=== PATIENT | female | born 1975 | race Caucasian/White ===

== ENCOUNTER 2017-08-30 12:50 | Outpatient (CLI) | payer OTHER ==
[2017-08-30 13:31] LABS: #Basophils 0.1 thou/uL (0.0-0.2); #Eosinphils 0.1 thou/uL (0.0-0.7); #Lymphocytes 2.8 thou/uL (1.20-3.40); #Monocytes 0.5 thou/uL (0.11-0.59); #Neutrophils 5.4 thou/uL (1.40-6.50); %Basophils 0.9 % (0.0-1.0); %Eosinophils 1.1 % (0.0-10.0); %Lymphocytes 31.4 % (21.0-51.0); Hematocrit 42.7 % (36.0-47.0); Mean Platelet Volume 8.7 fL (7.4-10.4); Red Blood Cell (RBC) Count 4.74 mill/uL (4.20-5.40)
[2017-08-30 14:01] LABS: ALT (SGPT) 7 U/L (8-55); AST (SGOT) 14 U/L (5-34); Alkaline Phosphatase 103 U/L (40-150); Anion Gap 9 mmol/L (10-20); BUN (Urea Nitrogen) 7 mg/dL (7.0-18.7); Bilirubin, Total 0.7 mg/dL (0.2-1.2); Calc. Creatinine Clearance 0 mL/min (70-130); Calcium 9.6 mg/dL (7.8-10.44); Carbon Dioxide 29 mmol/L (22-29); Chloride 104 mmol/L (98-107); Estimated GFR-MDRD Greater than 90; Globulin 3.2 g/dL (2.4-3.5); Protein, Total 7.4 g/dL (6.0-8.3)
== END 2017-08-30 12:51 | disposition home or self-care (01) ==
LOC: LABBT 12:50
PROVIDERS: ATTEND Specialist
DX: Z01.812 Encounter for preprocedural laboratory examination (principal); K80.20 Calculus of gallbladder without cholecystitis without obstruction
CPT/HCPCS: 80053; 85025

== ENCOUNTER 2017-09-01 10:40 | Day surgery (SDC) | payer OTHER ==
[2017-08-30 12:57] VITALS: BMI 38.9
[2017-09-01] MEDS ORDERED: Ketorolac Tromethamine 30 MG/ML VIAL ONE (11:54)
[2017-09-01] MEDS ORDERED: CEFAZOLIN/Water 2 GM/20 ML SYRINGE ONE (11:54)
[2017-09-01] MEDS ORDERED: Bupivacaine/Epinephrine 0.25% 30 ML VIAL ONE (12:32)
[2017-09-01] MEDS ORDERED: Fentanyl 100 MCG/2 ML VIAL ONE ×2 (13:15→14:52)
[2017-09-01] MEDS ORDERED: Promethazine HCl 25 MG/ML VIAL ONE (14:38)
[2017-09-01] MEDS ORDERED: Dexamethasone 20 MG/5 ML VIAL ONE (15:01)
[2017-09-01] MEDS ORDERED: Glycopyrrolate 0.2 MG/ML 5 ML SYRINGE ONE (15:01)
[2017-09-01] MEDS ORDERED: Propofol 200 MG/20 ML VIAL ONE (15:01)
[2017-09-01] MEDS ORDERED: Ondansetron HCl/PF 4 MG/2 ML Vial ONE (15:01)
[2017-09-01] MEDS ORDERED: Lidocaine 1% PF 5 ML VIAL ONE (15:01)
[2017-09-01] MEDS ORDERED: HYDROcodone/Acetaminophen 5/325 mg Tablet ONE (16:15)
--- NOTE | 2017-09-02 16:27 | OP ---
DATE OF PROCEDURE: 09/01/2017 PREOPERATIVE DIAGNOSIS: Symptomatic cholelithiasis. POSTOPERATIVE DIAGNOSIS: Symptomatic cholelithiasis. PROCEDURE PERFORMED: Laparoscopic cholecystectomy. SURGEON: Siddhartha Bo M.D. ANESTHESIA: General endotracheal. INDICATIONS: The patient is a 42-year-old morbidly obese female. She is currently undergoing evalua tion for bariatric surgery. She complained of right upper quadrant abdominal pain and gallbladder ul trasound was performed by myself revealing evidence of cholelithiasis. Her preoperative liver functi on tests were entirely normal. She is taken to the operating room at this time for laparoscopic chol ecystectomy. PROCEDURE IN DETAIL: Informed consent was obtained. The patient was taken to the operating room whe re general endotracheal anesthesia was obtained with the patient in the supine position. The abdomen was prepped with Betadine and draped in the usual sterile fashion. Quarter percent Marcaine with ep inephrine was infiltrated below the umbilicus and a 10 mm infraumbilical incision was created. A Lenin ess needle was passed through this incision into the peritoneal cavity. A pneumoperitoneum was estab lished using carbon dioxide up to a pressure of 15 mmHg. Local anesthetic was infiltrated and three additional 5 mm right upper quadrant incisions were created. Through the mid incision, a 5 mm port w as passed into the peritoneal cavity. The camera was passed through this port and under direct visio n, an 11 port is passed through the infraumbilical incision. The camera was replaced through this port, and under dir ect vision, two additional 5 mm ports were passed through the incisions already created. The gallbladder was grasped and retracted in a cephalad direction. Minimal adhesions were bluntly st ripped away from the apex of the gallbladder, and the apex was retracted laterally and inferiorly. C areful dissection was carried out to the apex of the gallbladder to identify the cystic duct and cyst ic artery. These were each carefully dissected circumferentially. The duct was of normal caliber. Both the duct and the artery were divided between clips leaving two on the side to remain within the abdomen. The gallbladder was then dissected out of the gallbladder fossa using electrocautery and re moved through the infraumbilical port site. The fascia was closed with 0 Vicryl suture and a GraNee needle. The right upper quadrant was inspected and irrigated. All irrigant was aspirated. All port s and instruments were removed under direct vision. Pneumoperitoneum was carefully evacuated. Addit ional local anesthetic was infiltrated into each port site. The skin edges were approximated with 4- 0 Monocryl subcuticular sutures, and Dermabond was placed externally. There were no complications. The patient tolerated the procedure well and was taken to the Recovery Room in stable condition. FINDINGS: The patient's gallbladder was without acute inflammation. There were substantial adhesion s to the gallbladder. The operation was performed uneventfully and with essentially no blood loss. There were several large gallstones present within the gallbladder that had to be removed percutaneou sly to allow gallbladder extraction. The duct was small and noninflamed and a cholangiogram was not obtained. There were no complications. The patient tolerated the procedure well and was taken to re covery room in stable condition.
== END 2017-09-01 16:38 | disposition home or self-care (01) ==
LOC: SDC 10:40
PROVIDERS: ATTEND Specialist
PROC: 0FT44ZZ Resection of Gallbladder, Percutaneous Endoscopic Approach (ICD-10-PCS; principal; 2017-09-01)
DX: K80.10 Calculus of gallbladder with chronic cholecystitis without obstruction (principal); E78.5 Hyperlipidemia, unspecified; F41.9 Anxiety disorder, unspecified; K21.9 Gastro-esophageal reflux disease without esophagitis; Z88.8 Allergy status to other drugs, medicaments and biological substances; Z90.710 Acquired absence of both cervix and uterus; Z98.818 Other dental procedure status; Z98.890 Other specified postprocedural states
CPT/HCPCS: 88304; 96374; J0131; J1100; J1885; J2001; J2405; J2550; J2704; J3010

== ENCOUNTER 2018-02-09 10:24 | Outpatient (CLI) | payer OTHER ==
--- NOTE | 2018-02-09 13:08 | RAD ---
DOUBLE CONTRAST UPPER GI: Date: 02/09/18 CLINICAL HISTORY: Reflux esophagitis, preoperative clearance. No prior imaging for comparison. FINDINGS: [employer] imaging reveals cholecystectomy clips at the right upper abdomen. There is a nonobstructed sia l gas pattern. Fluoroscopic imaging with the patient ingesting effervescent crystals, thick and thin barium, and a 1 2.5 mm barium tablet performed, which reveals appropriate esophageal motility without evidence of per sistent mass effect or constricted lesion. There are foci of altered density demonstrated within the gastric body which demonstrate a thin rim of peripheral density of barium contrast. Duodenal bulb is normal in morphology. Proximal small bowel demonstrates appropriate mucosal pattern and caliber. Mild gastroesophageal reflux and a small hiatal hernia are visualized under real-time fluoroscopy. A 12.5 mm barium tablet freely traverses the esophagus and into the stomach. IMPRESSION: There are multiple foci of altered density involving the mucosal surface of the gastric body without evidence of projectile diverticula seen with oblique imaging. Considerations would include areas of m ucosal ulceration or possibly polyps. This should be more definitively characterized with upper endos copy for further characterization. Telephone call of these findings placed to the patient's physician, Siddhartha Bo, at the time o f the exam completion. CODE CR. POS: ALLEN
== END 2018-02-09 10:25 | disposition home or self-care (01) ==
LOC: RAD 10:24
PROVIDERS: ATTEND Specialist
DX: Z01.818 Encounter for other preprocedural examination (principal); K21.0 Gastro-esophageal reflux disease with esophagitis; R93.3 Abnormal findings on diagnostic imaging of other parts of digestive tract
CPT/HCPCS: 74247

== ENCOUNTER 2018-10-23 14:15 | Outpatient (CLI) | payer OTHER | END 2018-10-23 14:16 | disposition home or self-care (01) | LOC: CTENTCT 14:15 | PROVIDERS: ATTEND Otolaryngology Plastic Surgery within the Head & Neck | DX: J01.91 Acute recurrent sinusitis, unspecified (principal) | CPT/HCPCS: 70486 ==

== ENCOUNTER 2018-12-16 00:52 | Emergency (ER) | payer OTHER ==
[2018-12-16 01:26] LABS: #Basophils 0.1 thou/uL (0.0-0.2); #Eosinphils 0.1 thou/uL (0.0-0.7); #Monocytes 0.8 thou/uL (0.11-0.59); #Neutrophils 6.7 thou/uL (1.40-6.50); %Basophils 0.9 % (0.0-1.0); %Eosinophils 0.9 % (0.0-10.0); %Monocytes 7.1 % (0.0-10.0); Hemoglobin 13.8 g/dL (12.0-16.0); Mean Corpuscular HGB CONC 33.8 g/dL (32.0-36.0); Mean Corpuscular Hemoglobin 29.7 pg (27.0-31.0); Mean Corpuscular Volume 87.8 fL (78.0-98.0); Mean Platelet Volume 8.5 fL (7.4-10.4); Platelet Count 348 thou/uL (130-400); RBC Distribution Width 12.5 % (11.5-14.5); Red Blood Cell (RBC) Count 4.66 mill/uL (4.20-5.40); White Blood Cell (WBC) Count 11.7 thou/uL (4.8-10.8)
[2018-12-16 01:30] LABS: BHCG - Serum Negative (NEGATIVE); Pregs Control Background? CLEAR/WHITE (CLR/WHITE); Pregs Control Bar Appear? YES (CONTROL BAR)
[2018-12-16 01:45] LABS: ALT (SGPT) 11 U/L (8-55); AST (SGOT) 16 U/L (5-34); Albumin 3.8 g/dL (3.5-5.0); Alkaline Phosphatase 106 U/L (40-150); Anion Gap 10 mmol/L (10-20); BUN (Urea Nitrogen) 7 mg/dL (7.0-18.7); Bilirubin, Total 0.5 mg/dL (0.2-1.2); Calc. Creatinine Clearance 0 mL/min (70-130); Calcium 9.3 mg/dL (7.8-10.44); Carbon Dioxide 29 mmol/L (22-29); Chloride 103 mmol/L (98-107); Estimated GFR-MDRD 81; Glucose 100 mg/dL (70-105); Lipase 26 U/L (8-78); Protein, Total 6.8 g/dL (6.0-8.3); Sodium 138 mmol/L (136-145)
[2018-12-16 03:12] LABS: Bilirubin Negative (Negative); Blood, Urine Negative (Negative); Clarity CLEAR (Clear); Glucose, Urine (Dipstick) Negative (Negative); Leukocyte Trace (Negative); Nitrite Negative (Negative); Protein, Urine (Dipstick) Negative (Neg-Trace); Specific Gravity, Urine 1.008 (1.002-1.036); Urobilinogen 0.2 mg/dL (0.2-1.0)
[2018-12-16 03:14] LABS: Bacteria/HPF Rare-Few HPF (None Seen); Hyaline Casts/LPF 0-3 HYALINE CAST LPF (0-3 Hyaline); RBC/HPF 0-3 HPF (0-3); Squamous Epithelial 0-3 HPF (0-3)
[2018-12-16] MEDS ORDERED: Dicyclomine 20 MG TAB ONE (03:25)
== END 2018-12-16 04:16 | disposition home or self-care (01) ==
LOC: ERS 00:52
DX: R10.9 Unspecified abdominal pain (principal); N39.0 Urinary tract infection, site not specified; R19.7 Diarrhea, unspecified; F41.9 Anxiety disorder, unspecified; K21.9 Gastro-esophageal reflux disease without esophagitis; Z79.899 Other long term (current) drug therapy
CPT/HCPCS: 36415; 80053; 81003; 81015; 83690; 84703; 85025; 87086; 99284

== ENCOUNTER 2018-12-24 16:39 | Outpatient (CLI) | payer OTHER ==
--- NOTE | 2019-01-09 15:49 | MMO ---
Bilateral MAMMO Bilat Screen [facility]. CLINICAL HISTORY: Patient is 43 years old and is seen for screening. The patient has no family history of breast cancer. The patient has no personal history of cancer. VIEWS: The views performed were: bilateral craniocaudal with tomosynthesis and bilateral mediolateral oblique with tomosynthesis. MAMMOGRAM FINDINGS: There are scattered fibroglandular densities. There are benign appearing calcifications seen in both breasts. There are no suspicious masses, suspicious calcifications, or new areas of architectural distortion. IMPRESSION: THERE IS NO MAMMOGRAPHIC EVIDENCE OF MALIGNANCY. A ROUTINE FOLLOW-UP MAMMOGRAM IN 1 YEAR IS RECOMMENDED. THE RESULTS OF THIS EXAM WERE SENT TO THE PATIENT. ACR BI-RADS Category 2 - Benign finding MAMMOGRAPHY NOTE: 1. A negative mammogram report should not delay a biopsy if a dominant of clinically suspicious mass is present. 2. Approximately 10% to 15% of breast cancers are not detected by mammography. 3. Adenosis and dense breasts may obscure an underlying neoplasm.
== END 2018-12-24 16:40 | disposition home or self-care (01) ==
LOC: BICMAMMO 16:39
PROVIDERS: ATTEND Student in an Organized Health Care Education/Training Program
DX: Z12.31 Encounter for screening mammogram for malignant neoplasm of breast (principal)
CPT/HCPCS: 77063; 77067